=== PATIENT | female | born 1975 | race Caucasian/White ===

== ENCOUNTER 2017-09-11 01:58 | Emergency (ER) | payer BC ==
[2017-09-11 02:04] VITALS: BP 118/75
[2017-09-11 03:04] LABS: AMPHETAMINE QUAL UR NONE DETECTED (NEG <=1000)
== END 2017-09-11 02:42 | disposition home or self-care (01) ==
LOC: ED 01:58
PROVIDERS: Emergency Medicine
DX: M79.645 Pain in left finger(s) (principal); F17.210 Nicotine dependence, cigarettes, uncomplicated
CPT/HCPCS: A4570; Q0092

== ENCOUNTER 2018-05-10 20:30 | Emergency (ER) | payer BC ==
[~2018-05-10] VITALS: Ht 170.2 cm; Wt 84.4 kg
[2018-05-10 20:37] VITALS: Ht 170.2 cm; Wt 84.4 kg
[2018-05-10 21:11] LABS: BASOPHIL % 0.6 % (0-2); PLATELET COUNT 215 x10^3mcL (130-400)
[2018-05-10 21:13] LABS: RED CELL DISTRIBUTION WIDTH 15.8 % (11.5-14.5)
[2018-05-10 21:16] LABS: CALCIUM 8.8 mg/dL (8.5-10.1); CARBON DIOXIDE 26.1 mmol/L (21-32); CHLORIDE SERUM 108 mmol/L (98-107); CREATININE SERUM 0.5 mg/dL (0.6-1.0); GFR1 > 60 mL/min; GLUCOSE SERUM 90 mg/dL (74-106); POTASSIUM SERUM 3.7 mmol/L (3.5-5.1); SODIUM SERUM 142 mmol/L (136-145)
[2018-05-10 21:21] LABS: ALBUMIN 3.2 g/dL (3.4-5.0); ALKALINE PHOSPHATASE 41 U/L (46-116); ALT/SGPT 16 U/L (14-59); AST/SGOT 11 U/L (15-37); BILIRUBIN TOTAL 0.93 mg/dL (0.20-1.00); TOTAL PROTEIN, SERUM 6.4 g/dL (6.4-8.2)
[2018-05-10 23:55] VITALS: BP 108/68
== END 2018-05-10 23:55 | disposition home or self-care (01) ==
LOC: ED 20:30
PROVIDERS: Emergency Medicine
DX: R42 Dizziness and giddiness (principal); R51 Headache; R00.2 Palpitations; R55 Syncope and collapse; Z90.49 Acquired absence of other specified parts of digestive tract
CPT/HCPCS: J1200; J1885; J2270; J7030; J8597